=== PATIENT | male | born 1950 ===

== ENCOUNTER 2025-01-19 15:14 | Emergency (ER) | payer OTHER, BC ==
[~2025-01-19] VITALS: Ht 182.9 cm; Wt 127.0 kg
[2025-01-19] MEDS ORDERED: Ondansetron HCl 2 MG / ML 2ML Vial IV ONE (15:30)
[2025-01-19 16:09] LABS: BASOPHILS ABSOLUTE AUTO 0.05 K/mm3 (0.00-0.23); BASOPHILS PERCENT AUTO 0 % (0-2); EOSINOPHILS ABSOLUTE AUTO 0.00 K/mm3 (0.00-0.68); EOSINOPHILS PERCENT AUTO 0 % (0-6); Hematocrit 36.7 % (37.0-53.0); Hemoglobin 12.5 g/dL (13.5-17.5); IMMATURE GRAN ABSOLUTE AUTO 0.05 K/mm3 (0.00-0.10); IMMATURE GRAN PERCENT AUTO 0 % (0-1); LYMPHOCYTES ABSOLUTE AUTO 0.22 K/mm3 (0.84-5.20); LYMPHOCYTES PERCENT AUTO 2 % (21-46); MONOCYTES ABSOLUTE AUTO 0.84 K/mm3 (0.16-1.47); MONOCYTES PERCENT AUTO 7 % (4-13); Mean Corpuscular HGB Conc 34.1 g/dL (31.5-36.5); Mean Corpuscular Volume 90 fL (80-100); NEUTROPHILS ABSOLUTE AUTO 11.55 K/mm3 (1.96-9.15); NEUTROPHILS PERCENT AUTO 91 % (41-73); NRBC ABSOLUTE 0.00 K/mm3 (0.00-0.02); NRBC Auto 0.0 /100 WBC (0.0-0.2); Platelet Count 200 K/mm3 (150-400); RDW Coefficient Variation 14.1 % (11.7-14.2); RDW Standard Deviation 46.5 fL (35.1-46.3)
[2025-01-19 16:29] LABS: Alanine Aminotransfer (ALT/SGP 23.0 U/L (12-78); Albumin, Blood 3.0 g/dL (3.4-5.0); Albumin/Globulin Ratio 0.7 (0.8-1.8); Anion Gap 16.0 mmol/L (3-11); Aspartate Aminotrans (AST/SGOT 15.0 U/L (12-37); Bilirubin, Total 1.2 mg/dL (0.1-1.0); Blood Urea Nitrogen 24.0 mg/dL (8-24); CO2, Blood 21.0 mmol/L (21-32); Calcium, Blood 9.5 mg/dL (8.5-10.1); Chloride, Blood 102.0 mmol/L (98-108); Creatinine, Blood 1.21 mg/dL (0.60-1.20); Globulin, Blood 4.3 g/dL (2.2-4.0); Glucose, Blood 249.0 mg/dL (70-99); Potassium, Blood 4.1 mmol/L (3.5-5.5); Sodium, Blood 135.0 mmol/L (136-145); Total Protein, Blood 7.3 g/dL (6.4-8.2)
[2025-01-19 17:10] LABS: Influenza A, PCR NEGATIVE (NEGATIVE); Influenza B, PCR NEGATIVE (NEGATIVE); Resp Syncytial Virus, PCR NEGATIVE (NEGATIVE); SARS-Cov-2 (COVID-19) PCR, MMC NEGATIVE (NEGATIVE)
[2025-01-19] MEDS ORDERED: HUMALOG KW100 UNIT/1 (17:24)
[2025-01-19] MEDS ORDERED: KETO15TC (17:24)
[2025-01-19] MEDS ORDERED: BASAGLAR K100 UNIT/3 (17:25)
[2025-01-19] MEDS ORDERED: LIDO5TO (17:25)
[2025-01-19] MEDS ORDERED: METFORMIN HCL500 MG (17:26)
[2025-01-19] MEDS ORDERED: ZESTRIL40 M1 (17:26)
[2025-01-19] MEDS ORDERED: MONT10T (17:27)
[2025-01-19] MEDS ORDERED: TAMS.4ER (17:27)
[2025-01-19] MEDS ORDERED: Trimethoprim/Sulfamethoxazole DS Tab PO ONE (17:35)
[2025-01-19] MEDS ORDERED: CefTRIAXone Sodium 1,000 MG in NS 100 ML IV ONE (17:35)
[2025-01-19] MEDS ORDERED: ACET500 (18:50)
[2025-01-19] MEDS ORDERED: CODACE30 (18:51)
[2025-01-19] MEDS ORDERED: ALBU90OI (18:51)
[2025-01-19] MEDS ORDERED: Aspir 8181 MG (18:52)
[2025-01-19] MEDS ORDERED: ARTHRITIS PAIN150 GM (18:52)
[2025-01-19] MEDS ORDERED: JARDIANCE25 MG (18:52)
[2025-01-19] MEDS ORDERED: ATOR80 (18:52)
[2025-01-19] MEDS ORDERED: FURO20 (18:53)
[2025-01-19] MEDS ORDERED: EZET10 (18:53)
[2025-01-19] MEDS ORDERED: GABA300 (18:54)
== END 2025-01-19 19:42 | disposition home or self-care (01) ==
LOC: EDSEX 15:14 → ER 15:14
PROVIDERS: Emergency Medicine
DX: R55 Syncope and collapse (principal); I10 Essential (primary) hypertension; E11.621 Type 2 diabetes mellitus with foot ulcer; L97.529 Non-pressure chronic ulcer of other part of left foot with unspecified severity
CPT/HCPCS: 80053; 83690; 83880; 84484; 85025; 87637; 93005; 93010; 96365; 96375; 99285-25; A9270; J0696; J2405

== ENCOUNTER 2025-01-30 16:15 | Inpatient (IN) | payer OTHER, MEDICARE ==
[~2025-01-30] VITALS: Ht 182.9 cm; Wt 128.4 kg
[~2025-01-30 16:15] MED LIST changes: -CETI5 PO; -FLUT.05NI; -OXYC5 PO
[2025-01-30 16:49] LABS: BASOPHILS ABSOLUTE AUTO 0.07 K/mm3 (0.00-0.23); BASOPHILS PERCENT AUTO 1 % (0-2); EOSINOPHILS ABSOLUTE AUTO 0.09 K/mm3 (0.00-0.68); EOSINOPHILS PERCENT AUTO 1 % (0-6); Hematocrit 37.8 % (37.0-53.0); Hemoglobin 12.4 g/dL (13.5-17.5); IMMATURE GRAN ABSOLUTE AUTO 0.05 K/mm3 (0.00-0.10); IMMATURE GRAN PERCENT AUTO 1 % (0-1); LYMPHOCYTES ABSOLUTE AUTO 1.23 K/mm3 (0.84-5.20); LYMPHOCYTES PERCENT AUTO 12 % (21-46); MONOCYTES ABSOLUTE AUTO 0.70 K/mm3 (0.16-1.47); MONOCYTES PERCENT AUTO 7 % (4-13); Mean Corpuscular HGB Conc 32.8 g/dL (31.5-36.5); Mean Corpuscular Volume 91 fL (80-100); NEUTROPHILS ABSOLUTE AUTO 8.22 K/mm3 (1.96-9.15); NEUTROPHILS PERCENT AUTO 79 % (41-73); NRBC ABSOLUTE 0.00 K/mm3 (0.00-0.02); NRBC Auto 0.0 /100 WBC (0.0-0.2); Platelet Count 345 K/mm3 (150-400); RDW Coefficient Variation 14.1 % (11.7-14.2); RDW Standard Deviation 46.8 fL (35.1-46.3)
[2025-01-30 17:21] LABS: Alanine Aminotransfer (ALT/SGP 30.0 U/L (12-78); Albumin, Blood 3.2 g/dL (3.4-5.0); Albumin/Globulin Ratio 0.7 (0.8-1.8); Anion Gap 10.0 mmol/L (3-11); Aspartate Aminotrans (AST/SGOT 16.0 U/L (12-37); Bilirubin, Total 0.7 mg/dL (0.1-1.0); Blood Urea Nitrogen 37.0 mg/dL (8-24); CO2, Blood 27.0 mmol/L (21-32); Calcium, Blood 9.6 mg/dL (8.5-10.1); Chloride, Blood 100.0 mmol/L (98-108); Creatinine, Blood 1.88 mg/dL (0.60-1.20); Globulin, Blood 4.7 g/dL (2.2-4.0); Glucose, Blood 280.0 mg/dL (70-99); Potassium, Blood 5.4 mmol/L (3.5-5.5); Sodium, Blood 132.0 mmol/L (136-145); Total Protein, Blood 7.9 g/dL (6.4-8.2)
[2025-01-30] MEDS ORDERED: Piperacillin/Tazobactam Sod 3.375 GM in NS 100 ML IV ONE (18:30)
[2025-01-30] MEDS ORDERED: NS 1,000 ML IV SCH ×2 (18:30→19:40)
[2025-01-30] MEDS ORDERED: FLU VACC TS2025(65UP)/MF59C/PF 45 MCG/0.5 ML SYRINGE IM SCH (19:35)
[2025-01-30] MEDS ORDERED: Magnesium Hydroxide Conc 10 ML UDC PO PRN (19:35)
[2025-01-30] MEDS ORDERED: Lactobacil 2-S.Thermo-Bifido 1 1 Cap PO SCH (21:00)
[2025-01-30 21:30] VITALS: BP 166/86
[2025-01-30 21:53] VITALS: BP 168/62
[2025-01-30] MEDS ORDERED: CETI5 PO (21:57)
[2025-01-30] MEDS ORDERED: FLUT.05NI (21:58)
--- NOTE | 2025-01-30 22:00 | NUR ---
ARRIVAL TO SURGICAL UNIT ROOM 208 AT 2120. PT A/O X4, PT ABLE TO STAND AND TRANSFER TO BED. ORIENTED TO ROOM, CALL LIGHT AND UNIT POLICIES. PT DENIES IGNITION SOURCES PRESENT ON PERSON. BLOOD PRESSURE ELEVATED, OTHER VITALS SIGNS STABLE. MEDICATION REQ COMPLETED. PICTURES OBTAINED OF LEFT FOOT/GREAT TOE, PRINTED, AND PLACED IN CHART. PT PROVIDED VERBAL CONSENT FOR PICTURES. CALL LIGHT IN REACH.
--- NOTE | 2025-01-30 23:50 | NUR ---
CALL TO HOSPITALIST. ORDER CLARIFICATION. NEW ORDER RECEIVED FOR ONE TIME DOSE LISINOPRIL 40MG NOW PT HAS ELEVATED BP. CLARIFIED INSULIN COVERAGE Q 6 HOURS WHILE NPO VIA SLIDE SCALE AT 0000, NO LONG ACTING INSULIN ORDERS AT THIS TIME. CLARIFIED ORDER FLUIDS PT TAKES LASIX AT BASELINE, 100ML/HR X1 BAG OK TO START 0000.
[2025-01-31] VITALS (21 sets, daily range): BP systolic 127–222; BP diastolic 54–85
[2025-01-31] MEDS ORDERED: Insulin Regular 100 UNIT/ML 10ML Vial SC SCH ×3 (00:05→21:00)
[2025-01-31] MEDS ORDERED: Piperacillin/Tazobactam Sod 3.375 GM in NS 100 ML IV SCH (02:00)
[2025-01-31 05:02] LABS: BASOPHILS ABSOLUTE AUTO 0.07 K/mm3 (0.00-0.23); BASOPHILS PERCENT AUTO 1 % (0-2); EOSINOPHILS ABSOLUTE AUTO 0.14 K/mm3 (0.00-0.68); EOSINOPHILS PERCENT AUTO 2 % (0-6); Hematocrit 34.0 % (37.0-53.0); Hemoglobin 11.2 g/dL (13.5-17.5); IMMATURE GRAN ABSOLUTE AUTO 0.05 K/mm3 (0.00-0.10); IMMATURE GRAN PERCENT AUTO 1 % (0-1); LYMPHOCYTES ABSOLUTE AUTO 1.50 K/mm3 (0.84-5.20); LYMPHOCYTES PERCENT AUTO 17 % (21-46); MONOCYTES ABSOLUTE AUTO 0.81 K/mm3 (0.16-1.47); MONOCYTES PERCENT AUTO 9 % (4-13); Mean Corpuscular HGB Conc 32.9 g/dL (31.5-36.5); Mean Corpuscular Volume 90 fL (80-100); NEUTROPHILS ABSOLUTE AUTO 6.19 K/mm3 (1.96-9.15); NEUTROPHILS PERCENT AUTO 71 % (41-73); NRBC ABSOLUTE 0.00 K/mm3 (0.00-0.02); NRBC Auto 0.0 /100 WBC (0.0-0.2); Platelet Count 295 K/mm3 (150-400); RDW Coefficient Variation 13.7 % (11.7-14.2); RDW Standard Deviation 46.0 fL (35.1-46.3)
[2025-01-31 05:15] LABS: Prothrombin Time Results 11.1 Sec (9.7-11.5)
--- NOTE | 2025-01-31 05:35 | NUR ---
SHIFT SUMMARY NOC. 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 PT A/O X4. PT NPO SINCE 0000 ASIDE FROM ONE TIME DOSE OF LISINOPRIL AND TYLENOL FOR PAIN WITH SMALL SIP OF WATER. SURGICAL INFECTION PREVENTION WIPE DOWN COMPLETED. FLUIDS RUNNING PER EMAR, VOIDING URINE. CALL LIGHT IN REACH AND PT MAKES NEEDS KNOWN.
[2025-01-31 05:38] LABS: Anion Gap 7.0 mmol/L (3-11); Blood Urea Nitrogen 34.0 mg/dL (8-24); CO2, Blood 26.0 mmol/L (21-32); Calcium, Blood 9.4 mg/dL (8.5-10.1); Chloride, Blood 106.0 mmol/L (98-108); Creatinine, Blood 1.57 mg/dL (0.60-1.20); Glucose, Blood 192.0 mg/dL (70-99); Potassium, Blood 4.6 mmol/L (3.5-5.5); Sodium, Blood 134.0 mmol/L (136-145)
[2025-01-31] MEDS ORDERED: HydrALAZINE HCl 20 MG / ML 1ML Vial IV PRN (07:55)
[2025-01-31] MEDS ORDERED: Albuterol 2.5 MG/3 ML VIAL INH PRN (08:45)
--- NOTE | 2025-01-31 16:26 | NUR ---
PT WITH DAY SURGERY NURSES @0316
[2025-01-31] MEDS ORDERED: FentaNYL Citrate 50 MCG/ML 2 ML Injection ONE (16:28)
[2025-01-31] MEDS ORDERED: Bupivacaine 0.5% HCl 5 MG/ML 30MLVIAL ONE (16:29)
[2025-01-31] MEDS ORDERED: Lidocaine HCl 2% 10 ML SDA ONE (16:29)
[2025-01-31] MEDS ORDERED: FentaNYL Citrate 50 MCG/ML 2 ML Injection IV PRN ×3 (16:30)
[2025-01-31] MEDS ORDERED: Metoclopramide HCl 5MG / ML 2ML Vial IV PRN (16:35)
[2025-01-31] MEDS ORDERED: HYDROmorphone HCl/Pf 1MG SYR IV PRN ×2 (16:35→18:45)
[2025-01-31] MEDS ORDERED: Ondansetron HCl 2 MG / ML 2ML Vial IV PRN ×2 (16:35→20:40)
--- NOTE | 2025-01-31 16:39 | NUR ---
PT HAS 20G IV TO LEFT AC THAT FLUSHES WELL AND FLOWS TO GRAVITY.
--- NOTE | 2025-01-31 16:42 | NUR ---
SUMMARY ASSUMED CARE OF PT @0700. AXO4. VSS. NPO FOR SURGERY - CALLED DR LOVELL TO [facility] PT WAS NOT ON SCHEDULE - 1700 ESTIMATED TIME PRODUCED, SEE SDS NURSE FINISHED CARPET INSPECTOR TIME. PT DID REQUIRE PAIN MEDICATION ADMINISTRATION TO WHICH RELIEF WAS STATED. L GREAT TOE WITH ULCERATION COVERING UP TO KNUCKLE AREA- DRESSED WITH NONADHERENT AND GAUZE WHILE AWAITING SURGERY. PT REMAINED NPO EXCEPT A FEW HOME REGIMEN MEDICATIONS. SPOUSE IN ROOM AWAITING SURGERY. AWAITING PT TO RETURN FROM OR NOW.
--- NOTE | 2025-01-31 17:03 | NUR ---
Pt brought from floor to Day Surgery for procedure. SBP 200s, Dr Elkins notified. Pt given Hydralazine by Dr Elkins. SBP 180s prior to OR.
--- NOTE | 2025-01-31 18:33 | NUR ---
1800 ARRIVAL BACK TO UNIT. PT AXO4. HTN - MEDS PER EMAR BUT PT REPORTING PAIN TO BACK. AWAITING MEDS TO START ALLEVIATING PAIN. PT HAS VOIDED. TOLERATING DINNER INTAKE. DRESSING TO L FOOT CDI - MAINTAINING HEEL WB. ON RA. [facility] SPOUSE AT BEDSIDE.
[2025-01-31] MEDS ORDERED: Metoclopramide HCl 5MG / ML 2ML Vial IV ONE (20:30)
[2025-01-31] MEDS ORDERED: Insulin Glargine-Yfgn 100 Unit/mL 3 ML SYR SC ONE (20:35)
[2025-01-31] MEDS ORDERED: NS 250 ML IV PRN (20:45)
[2025-01-31] MEDS ORDERED: Insulin Glargine 100 Unit/ML 3 ML SYR SC ONE (20:50)
--- NOTE | 2025-01-31 21:00 | NUR ---
CALL TO HOSPITALIST. NEW ORDERS. CALL PLACED REGARDING PT EXPERIENCING N/V, HTN, NEEDING HOME LISINOPRIL ORDERED, AND HOME LONG ACTING INSULIN ORDERED. NEW ORDERS RECEIVED FOR ONE TIME DOSE REGLAN, ZOFRAN 4MG PRN, LISINOPRIL 40MG QD, AND ONE TIME LANTUS 15MG SINCE PT NOT TOLERATING PO INTAKE c N/V.
[2025-02-01 03:10] VITALS: BP 145/80
[2025-02-01 03:52] LABS: BASOPHILS ABSOLUTE AUTO 0.07 K/mm3 (0.00-0.23); BASOPHILS PERCENT AUTO 1 % (0-2); EOSINOPHILS ABSOLUTE AUTO 0.03 K/mm3 (0.00-0.68); EOSINOPHILS PERCENT AUTO 0 % (0-6); Hematocrit 36.9 % (37.0-53.0); Hemoglobin 12.0 g/dL (13.5-17.5); IMMATURE GRAN ABSOLUTE AUTO 0.04 K/mm3 (0.00-0.10); IMMATURE GRAN PERCENT AUTO 1 % (0-1); LYMPHOCYTES ABSOLUTE AUTO 1.16 K/mm3 (0.84-5.20); LYMPHOCYTES PERCENT AUTO 14 % (21-46); MONOCYTES ABSOLUTE AUTO 0.68 K/mm3 (0.16-1.47); MONOCYTES PERCENT AUTO 8 % (4-13); Mean Corpuscular HGB Conc 32.5 g/dL (31.5-36.5); Mean Corpuscular Volume 92 fL (80-100); NEUTROPHILS ABSOLUTE AUTO 6.58 K/mm3 (1.96-9.15); NEUTROPHILS PERCENT AUTO 77 % (41-73); NRBC ABSOLUTE 0.00 K/mm3 (0.00-0.02); NRBC Auto 0.0 /100 WBC (0.0-0.2); Platelet Count 313 K/mm3 (150-400); RDW Coefficient Variation 14.0 % (11.7-14.2); RDW Standard Deviation 47.3 fL (35.1-46.3)
[2025-02-01 04:13] LABS: Anion Gap 9.0 mmol/L (3-11); Blood Urea Nitrogen 23.0 mg/dL (8-24); CO2, Blood 26.0 mmol/L (21-32); Calcium, Blood 9.5 mg/dL (8.5-10.1); Chloride, Blood 103.0 mmol/L (98-108); Creatinine, Blood 1.22 mg/dL (0.60-1.20); Glucose, Blood 194.0 mg/dL (70-99); Potassium, Blood 4.5 mmol/L (3.5-5.5); Sodium, Blood 133.0 mmol/L (136-145)
--- NOTE | 2025-02-01 06:28 | NUR ---
SHIFT SUMMARY NOC. PT POD 1 FOR LEFT HALLUX AMPUTATION. PT'S DRESSING HAS NOTED DRIED SANGUINEOUS DRAINAGE PRESENT ON GAUZE, JERROD WRAP IS C/D/I. PT NOT OUT OF BED THIS SHIFT POST OP SHOE WAS WRONG SIZING. PT WAS NAUSEOUS AT START OF SHIFT AND HAD X1 UM EMESIS. MEDICATED WITH REGLAN PER EMAR AND NO FURTHER EPISODES OF N/V. PT VOIDING URINE VIA URINAL AND REPOSITIONS WELL IN BED. PT MEDICATED FOR PAIN WITH ORAL OXYCODONE, PT REPORTED RELIEF OF SX. PT'S BLOOD PRESSURE HAS IMPROVED THROUGHOUT SHIFT WAS HYPERTENSIVE AT START. PT S.O. AT BEDSIDE T/O SHIFT. PT MAKES NEEDS KNOWN CALL LIGHT IN REACH.
[2025-02-01 07:00] VITALS: BP 147/74
[2025-02-01] MEDS ORDERED: OXYC5 PO (13:46)
[2025-02-01 14:45] VITALS: BP 145/58
--- NOTE | 2025-02-01 16:18 | NUR ---
DISCHARGE: PACKET PRINTED AND PT EDUCATED. IV DC'D WNL, TIP INTACT. PT GIVEN PAIN MED SCRIPT, ORTHO BOOT, FWW AND PLANS TO CLINICAL APPLICATION SPECIALIST WHEELCHAIR AFTER LEAVING HOSPITAL. PT LEFT UNIT WITH AND DAIJA JAQUEZ AT ABOUT 1500.
== END 2025-02-01 15:45 | disposition home health service (06) | DRG 617 ==
LOC: ER 16:15 → SURS 19:30 → ERHOLD 19:30 → SURS 20:30
PROVIDERS: Family Medicine; Podiatrist Foot & Ankle Surgery; Student in an Organized Health Care Education/Training Program; ADMIT Hospitalist
PROC: 3E03329 Introduction of Other Anti-infective into Peripheral Vein, Percutaneous Approach (ICD-10-PCS; 2025-01-30)
PROC: 0Y6Q0Z1 Detachment at Left 1st Toe, High, Open Approach (ICD-10-PCS; principal; 2025-01-31 17:00)
DX: E11.69 Type 2 diabetes mellitus with other specified complication (principal); M86.8X7 Other osteomyelitis, ankle and foot; E11.42 Type 2 diabetes mellitus with diabetic polyneuropathy; N17.9 Acute kidney failure, unspecified; I10 Essential (primary) hypertension; E78.00 Pure hypercholesterolemia, unspecified; Z79.4 Long term (current) use of insulin; Z79.51 Long term (current) use of inhaled steroids; Z79.82 Long term (current) use of aspirin; Z79.84 Long term (current) use of oral hypoglycemic drugs; Z79.899 Other long term (current) drug therapy; Z98.890 Other specified postprocedural states
CPT/HCPCS: 36415; 73660; 80048; 80053; 82947; 85025; 85610; 94640; 94660; 94664; 94760; 94762; 96374; 97110; 97161; 97165; 97530; 97535; 99284-25; A9270; J0360; J1171; J1815; J2003; J2543; J2704; J2765; J3010; J7030; J7120

== ENCOUNTER → 2025-01-30 | Outpatient (CLI) | payer OTHER ==
[~2025-01-30] MED LIST: ACET500; ALBU90OI; ARTHRITIS PAIN150 GM; ATOR80; Aspir 8181 MG; BASAGLAR K100 UNIT/3; CETI5 PO; CODACE30; EZET10; FLUT.05NI; FURO20 PO; GABA300; HUMALOG KW100 UNIT/1; JARDIANCE25 MG PO; KETO15TC; LIDO5TO; METFORMIN HCL500 MG PO; MONT10T; OXYC5 PO; TAMS.4ER PO; ZESTRIL40 M1 PO
== END | disposition home or self-care (01) ==
LOC: LAB SHORT 16:00 → LAB 16:00
DX: E11.621 Type 2 diabetes mellitus with foot ulcer (principal)
CPT/HCPCS: 87070; 87205

== ENCOUNTER → 2025-03-09 | Outpatient (CLI) | payer OTHER ==
[~2025-03-09] MED LIST changes: +CETI5 PO; +FLUT.05NI; +OXYC5 PO
[2025-03-09 19:56] LABS: Anion Gap 9 mmol/L (3-11); Blood Urea Nitrogen 48 mg/dL (8-24); C-REACTIVE PROTEIN, EXT RANGE <0.290 mg/dL (0.000-0.300); CO2, Blood 27 mmol/L (21-32); Calcium, Blood 9.8 mg/dL (8.5-10.1); Chloride, Blood 103 mmol/L (98-108); Creatinine, Blood 1.23 mg/dL (0.60-1.20); Glucose, Blood 165 mg/dL (70-99); Potassium, Blood 5.0 mmol/L (3.5-5.5); Sodium, Blood 134 mmol/L (136-145)
[2025-03-13 06:33] LABS: CYCLIC CITRULLINATED PEP,IGG/A 2 Units (0-19)
== END ==
LOC: LAB SHORT 17:45 → LAB 17:45
PROVIDERS: Nurse Practitioner Family
DX: E11.621 Type 2 diabetes mellitus with foot ulcer (principal); L97.529 Non-pressure chronic ulcer of other part of left foot with unspecified severity; D89.89 Other specified disorders involving the immune mechanism, not elsewhere classified
CPT/HCPCS: 80048; 82550; 83036; 86140; 86200